=== PATIENT | female | born 1980 | race African-American/Black ===

== ENCOUNTER 2017-06-08 22:42 | Emergency (ER) | payer SELFPAY ==
[~2017-06-08] VITALS: Ht 170.2 cm; Wt 65.0 kg
[2017-06-08 22:45] VITALS: BP 163/89; PULSE 71; RESP 16; TEMP 97.8; O2SAT 100
[2017-06-08] MEDS ORDERED: BACL10TA PO (23:27)
[2017-06-08] MEDS ORDERED: DICL75TA PO (23:27)
--- NOTE | 2017-06-08 23:29 | PD ---
HPI Chief Complaint: Injury Time Seen by Provider: 23:18 Travel History International Travel<30 days: No Contact w/Intl Traveler<30days: No Traveled to known affect area: No History of Present Illness HPI 36-year-old Female presents for evaluation of right-sided neck pain, right arm pain. She describes it as a sharp shooting pain that is worse with movement. Symptoms started 2 weeks ago, have persisted which prompted evaluation. She tried using [id number] Motrin which seemed to help some. She denies any trauma. She does not recall any specific instances of heavy lifting. She denies any numbness or tingling or weakness. She denies any chest pain or shortness of breath. She has no other complaints at this time. [facility] Past Medical History Blood Disorders: No Diminished Hearing: No : 2 Para: 2 Miscarriage: 0 : 0 Tubal Ligation: Yes Social History Alcohol Use: Yes (occ) Tobacco Use: Yes Substance Use: No Allergies-Medications (Allergen,Severity, Reaction): Coded Allergies: No Known Allergies (Verified , 04/18/14) Reported Meds & Prescriptions Reported Meds & Active Scripts Active Diclofenac Sodium DR (Diclofenac Sodium) 75 Mg Tabdr 75 Mg PO BID 10 Days Baclofen 10 Mg Tab 10 Mg PO Q8HR PRN 10 Days Review of Systems Except as stated in HPI: all other systems reviewed are Neg Physical Exam Narrative GENERAL: Well-developed well-nourished female in no acute distress SKIN: Warm and dry. HEAD: Atraumatic. Normocephalic. EYES: Pupils equal and round. No scleral icterus. No injection or drainage. ENT: No nasal bleeding or discharge. Mucous membranes pink and moist. NECK: Trachea midline. No JVD. CARDIOVASCULAR: Regular rate and rhythm. No murmur appreciated. RESPIRATORY: No accessory muscle use. Clear to auscultation. Breath sounds equal bilaterally. MUSCULOSKELETAL: No obvious deformities. There is some tenderness to palpation to the right trapezius musculature. There is no tenderness to palpation along the cervical midline spine. The patient maintains full range of motion of the neck. She has 5 out of 5 muscle strength on scrummaster, arm flexion and extension, shoulder abduction and adduction. The edema. 2+ radial pulse. Capillary refill less than 2 seconds all digits right left hand. NEUROLOGICAL: Awake and alert. No obvious cranial nerve deficits. Motor grossly within normal limits. Normal speech. Data Data Last Documented VS Vital Signs Date Time Temp Pulse Resp B/P Pulse Ox O2 Delivery O2 Flow Rate FiO2 06/08/17 22:45 97.8 71 16 163/89 100 Room Air Orders Ketorolac Inj (Toradol Inj) (06/08/17 23:30) Orphenadrine Inj (Norflex Inj) (06/08/17 23:30) MDM Medical Decision Making Medical Screen Exam Complete: Yes Emergency Medical Condition: Yes Medical Record Reviewed: Yes Differential Diagnosis Cervical radiculopathy, herniated nucleus pulposus, trapezius spasm, DVT Narrative Course 36-year-old female who for 2 weeks is been experiencing right-sided neck pain that seems to radiate down the right arm. Physical examination history are most consistent with cervical radiculopathy. The plan would be to treat the patient symptomatically with NSAIDs, muscle relaxants, have her follow up with primary care physician for recheck, outpatient MRI imaging if symptoms persist. Diagnosis Primary Impression: Cervical radiculopathy Additional Instructions: Medication as needed. Take diclofenac with meals. Do not drive or drink alcohol when taking baclofen. Follow up with primary care physician in one to 2 weeks if symptoms persist. Return for any emergent medical conditions. Med/Other Pt SpecificInfo: Prescription(s) given Scripts Diclofenac Sodium DR 75 Mg Tabdr75 Mg PO BID 10 Days Ref 0 Prov:Padma Arango MD 06/08/17 Baclofen 10 Mg Tab10 Mg PO Q8HR PRN (MUSCLE SPASM) 10 Days Ref 0 Prov:Padma Arango MD 06/08/17 Disposition: 01 DISCHARGE HOME Condition: Stable Mando Sadler Jun 08, 2017 23:29
[2017-06-08] MEDS ORDERED: KETOROLAC TROMETHAMINE 60 MG/2 ML (IM) VIAL IM ONE (23:30)
[2017-06-08] MEDS ORDERED: ORPHENADRINE INJ 60 MG/2 ML AMP IM ONE (23:30)
== END 2017-06-08 23:55 | disposition home or self-care (01) ==
LOC: NEPD 22:42
DX: M54.12 Radiculopathy, cervical region (principal); Z72.0 Tobacco use
CPT/HCPCS: 96372; 99284; J1885; J2360